=== PATIENT | male | born 1995 | race Caucasian/White ===

== ENCOUNTER 2018-03-13 12:45 | Inpatient (IN) | payer BC ==
[~2018-03-13] VITALS: Ht 190.5 cm; Wt 72.8 kg
[2018-03-13 13:35] LABS: BASOPHIL (%) 0.3 % (0-1); BASOPHIL COUNT 0.1 K/uL (0-0.1); EOSINOPHIL (%) 0 % (0-5); HEMATOCRIT 36.2 % (38.0-50.0); HEMOGLOBIN 12.9 G/DL (12.5-16.6); IMMATURE GRANULOCYTE (%) 0.6 % (0.0-0.7); LYMPHOCYTE (%) 7.3 % (15-42); LYMPHOCYTE COUNT 1.3 K/uL (1.0-2.8); MCH 30.1 PG (29.0-34.0); MCHC 35.6 G/DL (30.0-36.0); MCV 84.4 FL (86-99); MONOCYTE (%) 11.9 % (3-12); MONOCYTE COUNT 2.1 K/uL (0-0.8); NEUTROPHIL (%) 79.9 % (45-76); NEUTROPHIL COUNT 14.1 K/uL (1.8-6.4); PLATELET COUNT 252 K/uL (156-360); RBC DIS.WIDTH-CV 11.8 % (11.8-14.6); RBC DIS.WIDTH-SD 35.7 % (39-53); RED BLOOD COUNT 4.29 M/uL (4.00-5.50); WHITE BLOOD COUNT 17.6 K/uL (4.1-10.2)
[2018-03-13 13:46] LABS: ALBUMIN 3.8 g/dL (3.2-4.8); CHLORIDE 102 mEq/L (99-109); POTASSIUM 3.5 mEq/L (3.7-5.4); SODIUM 137 mEq/L (136-147)
[2018-03-13 13:48] LABS: GLUCOSE 102 mg/dL (70-99); TOTAL PROTEIN 6.7 g/dL (6.4-8.3)
[2018-03-13 13:52] LABS: ALKALINE PHOSPHATASE 64 IU/L (3-129); CREATININE 0.8 mg/dL (0.6-1.3); GFR ESTIMATE (CALCULATED) > 59 mL/min/ (58.99-99999)
[2018-03-13 13:53] LABS: AST (GOT) 15 IU/L (2-34); DIRECT BILIRUBIN 0.4 mg/dL (0.0-0.3); UREA NITROGEN (BUN) 11 mg/dL (9-23)
[2018-03-13 13:55] LABS: ALT (GPT) 10 IU/L (3-49); LIPASE 23 U/L (1.0-51.0)
[2018-03-13 14:21] LABS: MONOSPOT (MONONUCLEOSIS SEROL) NEGATIVE
[2018-03-13] MEDS ORDERED: PREDNISONE20 MG PO (15:11)
[2018-03-13] MEDS ORDERED: FAMOTIDINE20 MG PO (15:12)
[2018-03-13] MEDS ORDERED: CLEOCIN150 MG PO (15:12)
[2018-03-13] MEDS ORDERED: NEXIUM20 MG PO (15:13)
[2018-03-13] MEDS ORDERED: WELLBUTRIN XL300 MG PO (15:14)
[2018-03-13 19:25] VITALS: BP 119/61
[2018-03-13 23:06] VITALS: BP 98/52
[2018-03-14 03:03] VITALS: BP 134/62
[2018-03-14 06:07] LABS: HEMATOCRIT 35.2 % (38.0-50.0); HEMOGLOBIN 12.2 G/DL (12.5-16.6); MCH 29.7 PG (29.0-34.0); MCHC 34.7 G/DL (30.0-36.0); MCV 85.6 FL (86-99); PLATELET COUNT 229 K/uL (156-360); RBC DIS.WIDTH-CV 11.8 % (11.8-14.6); RBC DIS.WIDTH-SD 36.4 % (39-53); RED BLOOD COUNT 4.11 M/uL (4.00-5.50); WHITE BLOOD COUNT 17.2 K/uL (4.1-10.2)
[2018-03-14 06:52] VITALS: BP 115/67
[2018-03-14 11:15] VITALS: BP 119/67
[2018-03-14 12:06] LABS: LYME DISEASE SEROLOGY SCREEN NEGATIVE (NEGATIVE)
[2018-03-14 16:20] VITALS: BP 134/82
[2018-03-14 20:15] VITALS: BP 125/82
[2018-03-15 06:02] LABS: HEMATOCRIT 38.5 % (38.0-50.0); HEMOGLOBIN 13.5 G/DL (12.5-16.6); MCH 29.9 PG (29.0-34.0); MCHC 35.1 G/DL (30.0-36.0); MCV 85.2 FL (86-99); PLATELET COUNT 246 K/uL (156-360); RBC DIS.WIDTH-CV 11.5 % (11.8-14.6); RBC DIS.WIDTH-SD 35.6 % (39-53); RED BLOOD COUNT 4.52 M/uL (4.00-5.50); WHITE BLOOD COUNT 10.5 K/uL (4.1-10.2)
[2018-03-15 06:18] LABS: CHLORIDE 102 MEQ/L (99-109); CREATININE 0.5 MG/DL (0.6-1.3); GFR ESTIMATE (CALCULATED) > 59 mL/min/ (58.99-99999); GLUCOSE 111 mg/dL (70-99); SODIUM 143 MEQ/L (136-147); UREA NITROGEN (BUN) 7 mg/dL (9-23)
[2018-03-15 06:49] LABS: POTASSIUM 4.6 MEQ/L (3.7-5.4)
[2018-03-15 07:10] VITALS: BP 101/57
[2018-03-15 15:00] VITALS: BP 131/73
[2018-03-15 18:01] LABS: APPEARANCE CLEAR ((CLEAR)); BILIRUBIN NEGATIVE; BLOOD NEGATIVE; COLOR YELLOW ((YELLOW)); GLUCOSE (STRIP) 150; KETONES 5; LEUKOCYTES NEGATIVE; NITRITE NEGATIVE; PROTEIN (STRIP) 30; SPECIFIC GRAVITY 1.025 (1.000-1.030); UCUL ADDED? NO
[2018-03-15 23:04] VITALS: BP 110/64
[2018-03-16 07:10] VITALS: BP 129/75
[2018-03-16] MEDS ORDERED: CLARITIN10 M3 PO (08:36)
== END 2018-03-16 12:31 | disposition home or self-care (01) | DRG 866 ==
LOC: EME 12:45 → EDOF 15:35 → 5EAST 15:35 → ENRESERV 15:37 → CANRESERV 15:37 → ENRESERV 16:12 → 5EAST 19:08
PROVIDERS: Emergency Medicine; Hospitalist; Physician Assistant
DX: B34.9 Viral infection, unspecified (principal); Z90.81 Acquired absence of spleen; R51 Headache; L08.9 Local infection of the skin and subcutaneous tissue, unspecified; J03.90 Acute tonsillitis, unspecified; D58.0 Hereditary spherocytosis; M43.6 Torticollis; F17.200 Nicotine dependence, unspecified, uncomplicated; D89.9 Disorder involving the immune mechanism, unspecified
CPT/HCPCS: 80048; 80076; 80202; 81003; 83605; 83690; 85025; 85027; 86308; 86618; 87040; 87651 90; 99281; 99285; J0133; J0692; J0696; J0706; J1200; J1885; J2405; J2765; J2930; J3370; J7030; J7050; Q0164; Q0177